=== PATIENT | male | born 1965 | race Caucasian/White ===

== ENCOUNTER 2018-05-10 16:43 | Emergency (ER) | payer SELFPAY ==
[2018-05-10 16:45] VITALS: PULSE 75; RESP 18; TEMP 97.7; O2SAT 100; BMI 27.3
--- NOTE | 2018-05-10 17:23 | ED PDOC ---
Arrival/HPI - General Chief Complaint: Trauma - History of Present Illness Narrative History of Present Illness (Text): 05/10/18 17:23 52 year old male, no significant pmh, nkda, complaining of left knee and lower back pain s/p fall about 1 hour ago after slipped on the ice on the ground. Aching pain, aggravated by movement, able to walk and bear weight, no numbness or tingling, no urinary or bowel incontinence/retention, no night sweat, no other medical or psychological complaints. Past Medical History - Provider Review Nursing Documentation Reviewed: Yes - Infectious Disease Hx of Infectious Diseases: None - Cardiac Hx Hypertension: Yes (no meds) - Psychiatric Hx Substance Use: No Family/Social History - Physician Review Nursing Documentation Reviewed: Yes Family/Social History: Unknown Family HX Smoking Status: Current Some Days Smoker Hx Alcohol Use: Yes Frequency of alcohol use: Socially Hx Substance Use: No Allergies/Home Meds Allergies/Adverse Reactions: Allergies No Known Allergies Allergy (Verified 05/10/18 17:13) Review of Systems - Review of Systems Constitutional: absent: Fatigue, Fevers Eyes: absent: Vision Changes ENT: absent: Hearing Changes Respiratory: absent: SOB, Cough Cardiovascular: absent: Chest Pain Gastrointestinal: absent: Abdominal Pain, Nausea, Vomiting Musculoskeletal: Arthralgias, Back Pain. absent: Neck Pain, Joint Swelling, Myalgias Skin: absent: Rash, Pruritis Neurological: absent: Headache, Dizziness Psychiatric: absent: Anxiety, Depression, Suicidal Ideation Physical Exam Vital Signs Reviewed: Yes Vital Signs Temp Pulse Resp Pulse Ox 05/10/18 16:43 97.7 F 75 18 100 Temperature: Afebrile Blood Pressure: Normal Pulse: Regular Respiratory Rate: Normal Appearance: Positive for: Well-Appearing, Non-Toxic, Comfortable Pain Distress: Moderate Mental Status: Positive for: Alert and Oriented X 3 - Systems Exam Head: Present: Atraumatic, Normocephalic Pupils: Present: PERRL Extroacular Muscles: Present: EOMI Conjunctiva: Present: Normal Mouth: Present: Moist Mucous Membranes Neck: Present: Normal Range of Motion Respiratory/Chest: Present: Clear to Auscultation, Good Air Exchange. No: Respiratory Distress, Accessory Muscle Use Cardiovascular: Present: Regular Rate and Rhythm, Normal S1, S2. No: Murmurs Abdomen: No: Tenderness, Distention, Peritoneal Signs Back: Present: Normal Inspection, Paraspinal Tenderness (LS spine: +ttp on the lt. paraspinal muscle region, no cva tenderness, FROM without limitation, sensation intact, motor 5/5, no saddling gait. ). No: CVA Tenderness, Midline Tenderness Upper Extremity: Present: Normal Inspection. No: Cyanosis, Edema Lower Extremity: Present: Normal Inspection, NORMAL PULSES, Normal ROM, Neurovascularly Intact, Capillary Refill < 2 s, Other (Lt. knee: +ttp on the anterior knee with no swelling, no joint laxity, negative chase and vallejo signsm, FROM without limitation, sensation intact, motor 5/5, +DPPT pulses, capillary refill< 2 seconds, neurovascular intact. ). No: Edema, CALF TENDERNESS, Deformity Neurological: Present: GCS=15, CN II-XII Intact, Speech Normal, Motor Func Grossly Intact, Gait Normal, Memory Normal Skin: Present: Warm, Dry, Normal Color. No: Rashes Psychiatric: Present: Alert, Oriented x 3, Normal Insight, Normal Concentration Medical Decision Making ED Course and Treatment: 05/10/18 17:27 -motrin -xrays -Observe and reassess 05/10/18 18:10 -Lt. knee xray ER wet read: no fracture or dislocation -LS spine xray No acute compression fractures no retropulsed fragments. Mild multilevel degenerative spondylosis most notably affecting the L5-S1 and L4-L5 levels. -Pt. feels well, pain resolved, walking with normal gait and posture, asymptomatic, request to be discharged home. -Discharge home with katie wrap, motrin, crutches, follow up with your own pmd and orthopedic/neurosurgeon within 2 days, return to the ER for any new or worsening signs or symptoms. - RAD Interpretation Radiology Orders: 05/10/18 17:19 KNEE WITH PATELLA LEFT 3 VIEW [RAD] Stat LS SPINE WITH OBL > 18 YRS OLD [RAD] Stat -Lt. knee xray -LS spine xray Date of service: 05/10/2018 PROCEDURE: Radiographs of the Lumbar Spine. HISTORY: low back pain s/p fall COMPARISON: No prior. FINDINGS: BONES: No acute compression fractures no retropulsed fragments. Minimal chronic a nterior stature loss of the T12 and to a lesser degree L1 and T11 segments. DISC SPACES: Mild multilevel degenerative spondylosis most notably affecting the L5-S1 and L4-L5 levels.. OTHER FINDINGS: None. IMPRESSION: No acute compression fractures no retropulsed fragments. Mild multilevel degenerative spondylosis most notably affecting the L5-S1 and L4-L5 levels.. 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 Disposition/Present on Arrival - Present on Arrival Any Indicators Present on Arrival: No History of DVT/PE: No History of Uncontrolled Diabetes: No Urinary Catheter: No History of Decub. Ulcer: No History Surgical Site Infection Following: None - Disposition Have Diagnosis and Disposition been Completed?: Yes Diagnosis: Low back pain, Knee pain, Knee injury Disposition: HOME/ ROUTINE Disposition Time: 18:13 Patient Plan: Discharge Patient Problems: Current Active Problems Problem Status Onset Knee injury Acute Knee pain Acute Low back pain Acute Condition: IMPROVED Additional Instructions: -Discharge home with katie wrap, motrin, cane, follow up with your own pmd and orthopedic/neurosurgeon within 2 days, return to the ER for any new or worsening signs or symptoms. Prescriptions: Ibuprofen [Motrin Tab] 600 mg PO QID PRN #30 tab PRN Reason: Other Referrals: [facility] [place] [Outside] - Follow up with primary Arash Harding MD [Staff Provider] - Follow up with primary Melchor Ponce MD [Staff Provider] - Follow up with primary Forms: [facility] ([place]), WORK NOTE
[2018-05-10 17:32] VITALS: BP 141/95
--- NOTE | 2018-05-10 18:06 | RAD ---
Date of service: 05/10/2018 PROCEDURE: Radiographs of the Lumbar Spine. HISTORY: low back pain s/p fall COMPARISON: No prior. FINDINGS: BONES: No acute compression fractures no retropulsed fragments. Minimal chronic anterior stature loss of the T12 and to a lesser degree L1 and T11 segments. DISC SPACES: Mild multilevel degenerative spondylosis most notably affecting the L5-S1 and L4-L5 levels.. OTHER FINDINGS: None. IMPRESSION: No acute compression fractures no retropulsed fragments. Mild multilevel degenerative spondylosis most notably affecting the L5-S1 and L4-L5 levels..
--- NOTE | 2018-05-10 18:10 | RAD ---
Date of service: 05/10/2018 PROCEDURE: Left Knee Radiographs. HISTORY: Pain. COMPARISON: None. FINDINGS: BONES: Normal. No fracture. JOINTS: Normal. No osteoarthritis. JOINT EFFUSION: Suspect trace joint effusion OTHER FINDINGS: None. IMPRESSION: No evidence of acute displaced fracture nor dislocation. Suspect trace suprapatellar joint effusion.
== END 2018-05-10 18:35 | disposition home or self-care (01) ==
LOC: MERGE 16:43 → ED 16:43
DX: M54.5 Low back pain (principal); M25.562 Pain in left knee; S89.92XA Unspecified injury of left lower leg, initial encounter; W00.0XXA Fall on same level due to ice and snow, initial encounter; I10 Essential (primary) hypertension